=== PATIENT | female | born 1965 | race Caucasian/White ===

== ENCOUNTER → 2019-04-11 | Emergency (ER) | payer MEDICARE ==
[~2019-04-11] VITALS: Ht 149.9 cm; Wt 57.6 kg
[~2019-04-11] MED LIST: DIGESTIVE ENZY1 EAC2 PO; PROBIOTIC1 EAC2 PO; VITAMIN C1000 MG PO
== END ==
LOC: ED 19:44
PROC: 0HQJXZZ Repair Left Upper Leg Skin, External Approach (ICD-10-PCS; principal; 2019-04-11)
DX: S71.112A Laceration without foreign body, left thigh, initial encounter (principal); Z87.891 Personal history of nicotine dependence; Z90.710 Acquired absence of both cervix and uterus; Z88.1 Allergy status to other antibiotic agents; Z79.899 Other long term (current) drug therapy; W45.8XXA Other foreign body or object entering through skin, initial encounter
CPT/HCPCS: 12002; 99282-25